=== PATIENT | female | born 1935 | race Hispanic/Latino ===

== ENCOUNTER 2017-01-13 14:53 | Emergency (ER) | payer MEDICARE, BC ==
[2017-01-13 15:06] VITALS: BMI 23.3
[2017-01-13 15:20] VITALS: RESP 18; TEMP 98.2; O2SAT 98
--- NOTE | 2017-01-13 16:01 | ED PDOC ---
Arrival/HPI - General Chief Complaint: Trauma Time Seen by Provider: 01/13/17 15:10 Historian: Patient - Critical Care Narrative Critical Care (Text): 01/13/17 81 yo female come in for evaluation of Right wrist pain, some swelling noted since few hours ago after sustained mechanical fall. Pt reports, " was playing balling, sled and fell, trying to break fall with Right hand". Pt admits, noted some deformity to Right wrist. Otherwise, pt denies head injury, LOC, syncope, headache, dizziness, visual changes, focal deficits, neck pain, CP, abd. pain, V /D, denies weakness, sensory or vascular deficits to Right arm and B/L LEs. Ambulate to Ed accompanied by for evaluation, not in any apparent distress. Past Medical History - Provider Review Nursing Documentation Reviewed: Yes - Travel History Have you recently traveled outside [place] w/in the past 3 mons?: No - Infectious Disease Hx of Infectious Diseases: None - Cardiac Hx Cardiac Disorders: No Hx Pacemaker: No - Pulmonary Hx Respiratory Disorders: No - Neurological Hx Neurological Disorder: No Hx Paralysis: No - HEENT Hx HEENT Disorder: No - Renal Hx Renal Disorder: No - Endocrine/Metabolic Hx Endocrine Disorders: No - Hematological/Oncological Hx Blood Disorders: Yes Hx Blood Transfusions: No Hx Blood Transfusion Reaction: No Hx Cancer: Yes (lymphoma) - Integumentary Hx Dermatological Disorder: No - Musculoskeletal/Rheumatological Hx Musculoskeletal Disorders: No - Gastrointestinal Hx Gastrointestinal Disorders: No - Genitourinary/Gynecological Hx Genitourinary Disorders: No - Psychiatric Hx Psychophysiologic Disorder: No Hx Emotional Abuse: No Hx Physical Abuse: No Hx Substance Use: No - Anesthesia Hx Anesthesia: Yes Hx Anesthesia Reactions: No Hx Malignant Hyperthermia: No - Suicidal Assessment Feels Threatened In Home Enviroment: No Family/Social History - Physician Review Nursing Documentation Reviewed: Yes Family/Social History: No Known Family HX Smoking Status: Never Smoked Hx Alcohol Use: No Hx Substance Use: No Allergies/Home Meds Allergies/Adverse Reactions: Allergies No Known Allergies Allergy (Verified 01/13/17 15:05) Home Medications: Home Meds Medication Instructions Recorded Confirmed No Known Home Med 01/13/17 01/13/17 Review of Systems - Review of Systems Constitutional: Normal Eyes: Normal. absent: Vision Changes, Photophobia ENT: Normal Respiratory: Normal Cardiovascular: Normal. absent: Chest Pain, Palpitations Gastrointestinal: Normal Genitourinary Female: Normal Musculoskeletal: Joint Swelling (Right wrist) Skin: Normal Neurological: Normal. absent: Headache, Dizziness Endocrine: Normal Hemo/Lymphatic: Normal Psychiatric: Normal Physical Exam Vital Signs Reviewed: Yes Vital Signs Temp Pulse Resp BP Pulse Ox 01/13/17 15:20 98.2 F 85 18 130/75 98 Temperature: Afebrile Blood Pressure: Normal Pulse: Regular Respiratory Rate: Normal Appearance: Positive for: Well-Appearing, Non-Toxic, Comfortable Pain Distress: Mild Mental Status: Positive for: Alert and Oriented X 3 - Systems Exam Head: Present: Atraumatic, Normocephalic Pupils: Present: PERRL Conjunctiva: Present: Normal Nose (External): Present: Atraumatic Neck: Present: Trachea Midline, Other ((-) palpable bony step offs, no skin changes.). No: MIDLINE TENDERNESS Respiratory/Chest: No: Tender to Palpation Back: No: Midline Tenderness Upper Extremity: Present: Normal ROM (Right wrist and hand), NORMAL PULSES, Tenderness (over dorsal aspect Right wrist), Swelling (mild, over dorsal asepct Right wrist), Neurovascularly Intact, Capillary Refill < 2s (Right hand), Deformity (mild over dorsal asepct Right wrist) Lower Extremity: Present: NORMAL PULSES, Normal ROM. No: Tenderness, Swelling, Deformity Neurological: Present: GCS=15, Motor Func Grossly Intact, Normal Sensory Function, Norm Deep Tendon Reflexes Skin: Present: Warm, Dry, Normal Color Psychiatric: Present: Alert, Oriented x 3 Medical Decision Making ED Course and Treatment: 01/13/17 On re-evaluation, pt is afebrile, hemodynamicaly stable. Non-toxic. Head: AT/NC neck: (-) midline tenderness. Right wrist: mild deformity noted dorsal aspect. FAROM, no skin changes, no neurovascular deficits distally to injury. Neurologicaly intact. Imaging review and appears abnormal (+)distal radial/ulnar fx SPlint applied, sling. Pt request Dr. Bolanos consult. was called and evaluated pt in ED. Right wrist fx Reduction, cast placed by . Pt advised by for further evaluation and follow. Pt advised, Return to ED if any worsening or new changes. - RAD Interpretation Radiology Orders: 01/13/17 15:10 WRIST, RIGHT 3 VIEWS [RAD] Stat 11/20/17 17:26 WRIST, RIGHT 3 VIEWS [RAD] Stat (+) DISTAL RADIAL/ULNAR FX/ANGULATED, COMMINUTED - Medication Orders Current Medication Orders: Discontinued Medications Acetaminophen (Tylenol 325mg Tab) 975 mg PO STAT STA Stop: 01/13/17 15:11 Last Admin: 01/13/17 15:21 Dose: 975 mg MAR Pain/Vitals Document 01/13/17 15:21 GMD (Rec: 01/13/17 15:21 GMD [id number]) Pain Reassessment Is This A Pain ReAssessment? No Sleep Is patient sleeping during reassessment? No Presence of Pain Presence of Pain Yes Location Left, Right or Bilateral Right Pain Location Body Site Wrist Disposition/Present on Arrival - Present on Arrival Any Indicators Present on Arrival: No History of DVT/PE: No History of Uncontrolled Diabetes: No Urinary Catheter: No History of Decub. Ulcer: No History Surgical Site Infection Following: None - Disposition Have Diagnosis and Disposition been Completed?: Yes Diagnosis: Wrist fracture Disposition: HOME/ ROUTINE Disposition Time: 15:59 Patient Plan: Discharge Patient Problems: Current Active Problems Problem Status Onset Wrist fracture Acute Condition: STABLE Discharge Instructions (ExitCare): Wrist Fracture in Adults (ED) Additional Instructions: WEAR SPLINT UNTIL RE-EVALUATED BY ORTHOPEDIST TYLENOL FOR PAIN NEED FOLLOW UP WITH ORTHOPEDIST IN 1-2 DAYS FOR RE-EVALUATION. RETURN TO ED IF ANY WORSENING OR NEW CHANGES. Referrals: Elaine Streeter MD [Primary Care Provider] - Follow up with primary Charan Diaz DO [Staff Provider] - Follow up with primary Forms: [employer] ([employer]) Orthopedic Time Performed: 15:58 Time Out: Side verified, Site verified, Patient ID confirmed Procedure: Splint Location: Right, Wrist Consent obtained: Verbal Performed by: Mid-level Provider Diagnosis: Fracture Type: Closed, Comminuted, Angulated Location: Right, Distal Bone: Radius, Ulna
--- NOTE | 2017-01-13 16:49 | RAD ---
PROCEDURE: Right Wrist Radiographs. HISTORY: injury COMPARISON: None. FINDINGS: BONES: There is acute displaced and slightly angulated fracture at the distal right radius. There is mildly displaced fracture of the right ulnar styloid process. 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 OTHER FINDINGS: None. IMPRESSION: Acute fractures noted at the distal right radius and styloid process of the right ulna
[2017-01-13] MEDS ORDERED: Lidocaine 1% Inj (20ml) ONE (16:51)
[2017-01-13] MEDS ORDERED: Bupivacaine 0.5% Inj(30mL) ONE (16:51)
[2017-01-13 18:25] VITALS: BP 124/78; PULSE 78
--- NOTE | 2017-01-14 08:24 | CON ---
DATE: 01/14/2017 HISTORY OF PRESENT ILLNESS: The patient is an 81-year-old female who slipped and fell while bowling with 10 pound ball today, sustained a dorsally displaced fracture of her right dominant distal radius. It did happen today about 2:00. We gave her hematoma block with Marcaine and Xylocaine and did a closed reduction with ligamentotaxis with finger traction and counter weight of 10 pounds, left it until exhausted, spasm of the muscles and did a closed reduction with three-point fixation correcting the dorsiflexion and the comminuted fragment that was isolated, had to be reduced with digital pressure toward volar tilt. She had lost that and had a large dorsal tilt. So once that was reduced, we put her in a circular short arm cast, and she was not excessively swollen since i got to her right away. Post reduction x-rays showed improved position, and we will see her in 10 days to reevaluate her; and if the cast is too loose, we can change it. If the fracture is displaced, we may have to put open reduction with a volar plate and try to keep her in a cast for not more than four weeks. FINAL DIAGNOSIS: Dorsally displaced comminuted intraarticular fracture, right distal radius dominant side. Charan Diaz DO [facility]
--- NOTE | 2017-01-14 08:39 | RAD ---
PROCEDURE: Right Wrist Radiographs. HISTORY: post reduction COMPARISON: Right wrist series 11 05/23/2016 7 p.m.. FINDINGS: BONES: Cast obscures fine bone and soft-tissue detail with apparent reduced distal right radial fracture now identified. JOINTS: No dislocation or subluxation grossly evident. SOFT TISSUES: Stable. OTHER FINDINGS: None. IMPRESSION: Reduced distal right radial fracture. Cast obscures fine bony detail.
== END 2017-01-13 18:25 | disposition home or self-care (01) ==
LOC: ED 14:53
DX: S62.101A Fracture of unspecified carpal bone, right wrist, initial encounter for closed fracture (principal); W01.0XXA Fall on same level from slipping, tripping and stumbling without subsequent striking against object, initial encounter; Y93.54 Activity, bowling; Y92.39 Other specified sports and athletic area as the place of occurrence of the external cause

== ENCOUNTER 2018-04-14 08:16 | Outpatient (CLI) | payer MEDICARE, BC | END 2018-04-14 08:17 | disposition home or self-care (01) | LOC: RAD 08:16 ==

== ENCOUNTER 2018-05-29 04:47 | Outpatient (CLI) | payer MEDICARE, BC | END 2018-05-29 04:48 | disposition home or self-care (01) | LOC: PET-BROA 04:47 | DX: C91.10 Chronic lymphocytic leukemia of B-cell type not having achieved remission (principal) ==

== ENCOUNTER → 2018-06-05 | Day surgery (SDC) | payer MEDICARE, BC ==
[~2018-06-05] MED LIST: Propofol 10 mg/ml Inj (20 ML) ONE; Sodium Chloride 0.9% 1,000 ML IV SCH
[2018-06-05 09:13] VITALS: BMI 23.3
[2018-06-05 15:05] VITALS: BP 121/58; PULSE 83; RESP 18; TEMP 97.8; O2SAT 97
== END | disposition home or self-care (01) ==
LOC: ENDO 08:55
PROVIDERS: ATTEND Internal Medicine Gastroenterology
DX: D50.9 Iron deficiency anemia, unspecified (principal); D17.79 Benign lipomatous neoplasm of other sites; K29.40 Chronic atrophic gastritis without bleeding; B96.81 Helicobacter pylori [H. pylori] as the cause of diseases classified elsewhere; E78.5 Hyperlipidemia, unspecified; E78.00 Pure hypercholesterolemia, unspecified; Z85.72 Personal history of non-Hodgkin lymphomas
CPT/HCPCS: 43239; 45378; 88305; 88342; J2704; J7030; J7040